=== PATIENT | male | born 1930 | race African-American/Black ===

== ENCOUNTER 2018-07-11 16:59 | Inpatient (IN) | payer MEDICARE, OTHER ==
[~2018-07-11] VITALS: Ht 175.3 cm; Wt 81.8 kg
[2018-07-11] MEDS ORDERED: SODIUM CHLORIDE 0.9% 1,000 ML IV ONE (17:46)
[2018-07-11 19:01] LABS: BASOPHILS % 0.7 % (0.0-2.0); EOSINOPHILS % 1.2 % (0.0-5.0); HEMATOCRIT. 39.8 % (42.0-52.0); LYMPHOCYTES % 28.1 % (20.0-50.0); MEAN CORPUSCULAR HEMOGLOBIN 30.4 pg (28.0-32.0); MEAN CORPUSCULAR VOLUME 92.9 fL (80.0-94.0); MEAN PLATELET VOLUME 9.2 fl (7.4-10.4); MONOCYTES % 5.3 % (2.0-8.0); NEUTROPHILS % 64.7 % (40.0-76.0); PLATELET 201 x1000/uL (130-400); RED BLOOD CELL COUNT 4.28 mill/uL (4.7-6.1); RED CELL DISTRIBUTION WIDTH 17.7 % (11.6-14.6)
[2018-07-11 19:02] LABS: CHLORIDE 108 mEq/L (98-107)
[2018-07-11 19:06] LABS: ETHANOL BLOOD < 10 mg/dL
[2018-07-11 19:09] LABS: PARTIAL THROMBOPLASTIN TIME 25.1 sec (23.4-31.0); PROTHROMBIN TIME 10.1 sec (9.1-11.1)
[2018-07-11] MEDS ORDERED: NA PHOS,M-B/NA PHOS,DI-BA ENEMA 118ML PR PRN (21:30)
[2018-07-11] MEDS ORDERED: ONDANSETRON HCL 4MG/2ML INJ IV PRN (21:30)
[2018-07-11] MEDS ORDERED: MAGNESIUM/ALUMINUM HYDROXIDE/SIMETHICONE 30ML UDC PO PRN (21:30)
[2018-07-11] MEDS ORDERED: DOCUSATE SODIUM 100MG CAPSULE PO PRN (21:30)
[2018-07-11] MEDS ORDERED: IPRATROPIUM/ALBUTEROL 0.5-3(2.5)MG/3ML NEB INH PRN (21:30)
[2018-07-11] MEDS ORDERED: GUAIFENESIN 200MG/10ML SUGAR FREE UDC PO PRN (21:30)
[2018-07-11] MEDS ORDERED: ACETAMINOPHEN 650MG SUPP PR PRN (21:30)
[2018-07-11] MEDS ORDERED: ACETAMINOPHEN 325MG TABLET PO PRN (21:30)
[2018-07-11] MEDS ORDERED: ACETAMINOPHEN 650MG/20.3ML UDC GT PRN (21:30)
[2018-07-11] MEDS ORDERED: ENOXAPARIN 40MG/0.4ML SYR SUBCUT SCH (21:30)
[2018-07-11] MEDS ORDERED: SODIUM CHLORIDE 0.9% INJ 3ML FLUSH IVF SCH (22:00)
[2018-07-11] MEDS: DEXT 5%/0.45% NACL 1000ML 1,000 ML IV SCH (22:23)
[2018-07-12 00:28] LABS: CREATINE KINASE 65 IU/L (39-308)
[2018-07-12 04:20] VITALS: BP 135/63
[2018-07-12] MEDS ORDERED: ENOXAPARIN 40MG/0.4ML SYR SUBCUT SCH (04:45)
[2018-07-12] MEDS ORDERED: NA PHOS,M-B/NA PHOS,DI-BA ENEMA 118ML PR PRN (04:45)
[2018-07-12] MEDS: SODIUM CHLORIDE 0.9% INJ 3ML FLUSH IVF SCH ×3 (06:00→21:28)
[2018-07-12 06:10] LABS: CLARITY URINE CLEAR (CLEAR); COLOR URINE YELLOW (YELLOW); KETONES URINE NEGATIVE (NEGATIVE); LEUKOCYTE ESTERASE URINE TRACE (NEGATIVE); NITRITE URINE NEGATIVE (NEGATIVE); OCCULT BLOOD URINE NEGATIVE (NEGATIVE); PROTEIN URINE NEGATIVE (NEGATIVE); SPECIFIC GRAVITY URINE 1.013 (1.005-1.030); UROBILINOGEN URINE 0.2 E.U./dL (0.2-1.0)
[2018-07-12 06:48] LABS: *AMPHETAMINES SCREEN URINE NEGATIVE (NEGATIVE); *BARBITURATES SCREEN URINE NEGATIVE (NEGATIVE); *BENZODIAZEPINES SCREEN URINE NEGATIVE (NEGATIVE); *COCAINE SCREEN URINE NEGATIVE (NEGATIVE); METHADONE URINE SCREEN NEGATIVE (NEGATIVE); OPIATES URINE SCREEN NEGATIVE (NEGATIVE)
[2018-07-12 06:49] LABS: CANNABINOID URINE SCREEN NEGATIVE (NEGATIVE); PHENCYCLIDINE URINE SCREEN NEGATIVE (NEGATIVE)
[2018-07-12 07:07] VITALS: BP 135/63
[2018-07-12 08:00] VITALS: BP 141/64
[2018-07-12 08:24] LABS: BASOPHILS % 0.8 % (0.0-2.0); EOSINOPHILS % 1.5 % (0.0-5.0); HEMATOCRIT. 34.8 % (42.0-52.0); HEMOGLOBIN. 11.4 g/dL (14.0-18.0); LYMPHOCYTES % 29.1 % (20.0-50.0); MEAN CORPUSCULAR VOLUME 91.7 fL (80.0-94.0); MONOCYTES % 7.7 % (2.0-8.0); NEUTROPHILS % 60.9 % (40.0-76.0); PLATELET 183 x1000/uL (130-400); RED BLOOD CELL COUNT 3.79 mill/uL (4.7-6.1)
[2018-07-12 08:46] LABS: BG BASE EXCESS -3.7 mmol/L (-2.0-2.0); BG CARBOXYHEMOGLOBIN 0.5 % (0.5-1.5); BG DEOXYHEMOGLOBIN 1.9 % (0.0-5.0); BG FRACTION INSPIRED OXYGEN 21; BG HCO3 ACT 20.7 mmol/L (22.0-26.0); BG METHEMOGLOBIN 0.3 % (0.0-1.5); BG OXYGEN SATURATION 98.1 % (92.0-98.5); BG OXYHEMOGLOBIN 97.3 % (94.0-97.0); BG PCO2 35.7 mmHg (35.0-45.0); BG PH 7.382 (7.350-7.450); BG PO2 109.7 mmHg (75.0-100.0); BG SAMPLE SITE RIGHT RADIAL; BG TOTAL HEMOGLOBIN 12.2 g/dL (12.0-18.0); BG VENT MODE ROOM AIR
[2018-07-12 09:12] LABS: CHLORIDE 115 mEq/L (98-107)
[2018-07-12 09:20] LABS: HDL CHOLESTEROL 52 mg/dL (40-59); LDL CHOLESTEROL 79 mg/dL (5-100)
[2018-07-12 09:21] LABS: CREATINE KINASE 76 IU/L (39-308)
[2018-07-12] MEDS: ENOXAPARIN 30MG/0.3ML SYR SUBCUT SCH ×2 (09:32→21:18)
[2018-07-12 12:00] VITALS: BP 139/56
[2018-07-12] MEDS ORDERED: DEXTROSE 50% WATER 50ML SYRINGE IV PRN (12:00)
[2018-07-12] MEDS: INSULIN LISPRO 100 UNITS/ML SUBCUT SCH ×3 (12:37→21:00)
[2018-07-12] MEDS ORDERED: MEGE40TA27 MT (12:49)
[2018-07-12] MEDS ORDERED: LOVA40TA73 PO (12:49)
[2018-07-12] MEDS ORDERED: BENA40TA9 PO (12:49)
[2018-07-12] MEDS ORDERED: ATEN100T MT (12:49)
[2018-07-12] MEDS ORDERED: FINA5TAB11 MT (12:49)
[2018-07-12] MEDS ORDERED: ALLO300T2 PO (12:49)
[2018-07-12] MEDS ORDERED: TERA10CA4 PO (12:49)
[2018-07-12] MEDS ORDERED: ASPI-1158 PO (12:49)
[2018-07-12] MEDS ORDERED: NIFE90TA2 PO (12:49)
[2018-07-12] MEDS ORDERED: CLOP75TA33 PO (12:49)
[2018-07-12] MEDS ORDERED: METF-414 PO (12:49)
[2018-07-12] MEDS ORDERED: HYDR12.529 MT (12:49)
[2018-07-12] MEDS ORDERED: SODIUM POLYSTYRENE SULFONATE 15 G/60 ML BOT PO NR (14:30)
[2018-07-12 16:00] VITALS: BP 150/66
[2018-07-12] MEDS: BLOOD SUGAR DIAGNOSTIC STRIP TEST SCH ×2 (17:01→21:00)
[2018-07-12 20:00] VITALS: BP 153/76
[2018-07-13] VITALS: BP 163/50
[2018-07-13] MEDS: DIPHENHYDRAMINE 50MG/ML VIAL IV PRN (02:21)
[2018-07-13] MEDS: SODIUM CHLORIDE 0.9% INJ 3ML FLUSH IVF SCH ×3 (06:07→21:36)
[2018-07-13 06:12] LABS: HEMATOCRIT 34.9 % (42.0-52.0); HEMOGLOBIN 11.5 g/dL (14.0-18.0); MEAN CORPUSCULAR HEMOGLOBIN 30.3 pg (28.0-32.0); MEAN CORPUSCULAR VOLUME 92.3 fL (80.0-94.0); PLATELET 176 x1000/uL (130-400); RED BLOOD CELL COUNT 3.78 mill/uL (4.7-6.1); RED CELL DISTRIBUTION WIDTH 17.5 % (11.6-14.6)
[2018-07-13] MEDS: INSULIN LISPRO 100 UNITS/ML SUBCUT SCH ×4 (06:33→21:34)
[2018-07-13] MEDS: BLOOD SUGAR DIAGNOSTIC STRIP TEST SCH ×4 (06:33→20:57)
[2018-07-13 08:00] VITALS: BP 159/84
[2018-07-13] MEDS: CLONIDINE 0.1MG TABLET PO PRN ×2 (08:39→16:23)
[2018-07-13] MEDS: ENOXAPARIN 30MG/0.3ML SYR SUBCUT SCH ×2 (08:40→20:37)
[2018-07-13] MEDS: DEXT 5%/0.45% NACL 1000ML 1,000 ML IV SCH (08:40)
[2018-07-13 12:00] VITALS: BP 138/63
[2018-07-13 16:00] VITALS: BP 176/51
[2018-07-13] MEDS ORDERED: MEDICATION NOT ON FORMULARY EA (Lovastatin 1 TAB) MT SCH (17:45)
[2018-07-13 17:59] LABS: T4 FREE 1.3 ng/dL (0.76-1.46)
[2018-07-13 18:22] LABS: FOLIC ACID (FOLATE) SERUM 14.9 ng/mL (>5.38)
[2018-07-13] MEDS: BENAZEPRIL 10MG TABLET PO SCH (18:26)
[2018-07-13] MEDS: AMLODIPINE 5MG TABLET PO SCH (18:26)
[2018-07-13 20:00] VITALS: BP 197/77
[2018-07-13] MEDS ORDERED: CEFTRIAXONE 1 G PREMIX 50 ML IV SCH (20:00)
[2018-07-13] MEDS: ERYTHROMYCIN BASE 0.5% OPHTH OINT 3.5GM BOTHEYE SCH (20:37)
[2018-07-13] MEDS: ATORVASTATIN CALCIUM 10MG TABLET PO SCH (20:39)
[2018-07-13] MEDS: QUETIAPINE FUMARATE 25MG TABLET PO SCH (20:39)
[2018-07-13 20:45] VITALS: BP 171/81
[2018-07-13] MEDS: TERAZOSIN HCL 5MG CAPSULE PO SCH (20:57)
[2018-07-14] VITALS: BP 122/58
[2018-07-14] MEDS: DEXT 5%/0.45% NACL 1000ML 1,000 ML IV SCH ×2 (00:04→15:17)
[2018-07-14 04:00] VITALS: BP 145/71
[2018-07-14] MEDS: ERYTHROMYCIN BASE 0.5% OPHTH OINT 3.5GM BOTHEYE SCH ×3 (04:00→20:28)
[2018-07-14] MEDS: SODIUM CHLORIDE 0.9% INJ 3ML FLUSH IVF SCH ×3 (06:04→22:28)
[2018-07-14 06:17] LABS: HEMATOCRIT 32.9 % (42.0-52.0); HEMOGLOBIN 10.9 g/dL (14.0-18.0); MEAN CORPUSCULAR HEMOGLOBIN 30.3 pg (28.0-32.0); MEAN CORPUSCULAR VOLUME 91.3 fL (80.0-94.0); PLATELET 168 x1000/uL (130-400); RED CELL DISTRIBUTION WIDTH 17.5 % (11.6-14.6)
[2018-07-14] MEDS: BLOOD SUGAR DIAGNOSTIC STRIP TEST SCH ×4 (06:45→20:24)
[2018-07-14] MEDS: INSULIN LISPRO 100 UNITS/ML SUBCUT SCH ×4 (06:48→20:40)
[2018-07-14 08:00] VITALS: BP 153/72
[2018-07-14] MEDS ORDERED: LORAZEPAM 2MG/ML CPJ IV PRN (08:00)
[2018-07-14] MEDS: FINASTERIDE 5MG TABLET PO SCH (08:54)
[2018-07-14] MEDS: QUETIAPINE FUMARATE 25MG TABLET PO SCH ×2 (08:54→20:29)
[2018-07-14] MEDS: ALLOPURINOL 100 MG TABLET PO SCH (08:54)
[2018-07-14] MEDS: BENAZEPRIL 10MG TABLET PO SCH (08:55)
[2018-07-14] MEDS: ENOXAPARIN 30MG/0.3ML SYR SUBCUT SCH ×3 (08:55→20:29)
[2018-07-14] MEDS: METFORMIN HCL 500MG TABLET PO SCH (08:55)
[2018-07-14] MEDS: AMLODIPINE 5MG TABLET PO SCH (08:55)
[2018-07-14] MEDS ORDERED: MEDICATION NOT ON FORMULARY EA (Terazosin Hcl 1 CAP) MT SCH (09:00)
[2018-07-14] MEDS ORDERED: MEDICATION NOT ON FORMULARY EA (Metformin Hcl 1 TAB) MT SCH (09:00)
[2018-07-14] MEDS ORDERED: MEDICATION NOT ON FORMULARY EA (Allopurinol 1 TAB) MT SCH (09:00)
[2018-07-14] MEDS ORDERED: MEDICATION NOT ON FORMULARY EA (Finasteride 1 TAB) MT SCH (09:00)
[2018-07-14 12:00] VITALS: BP 108/60
[2018-07-14 16:00] VITALS: BP 150/70
[2018-07-14] MEDS: LEVOFLOXACIN 500MG PREMIX 100 ML IV SCH (19:36)
[2018-07-14 20:00] VITALS: BP 141/75
[2018-07-14] MEDS ORDERED: CEFTRIAXONE 1,000 MG in DEXTROSE 5% WATER 50 ML IV SCH (20:00)
[2018-07-14] MEDS: ATORVASTATIN CALCIUM 10MG TABLET PO SCH (20:29)
[2018-07-14] MEDS: TERAZOSIN HCL 5MG CAPSULE PO SCH (20:39)
[2018-07-15] VITALS: BP 143/60
[2018-07-15] MEDS: DIPHENHYDRAMINE 50MG/ML VIAL IV PRN (00:28)
[2018-07-15 04:00] VITALS: BP 135/58
[2018-07-15] MEDS: ERYTHROMYCIN BASE 0.5% OPHTH OINT 3.5GM BOTHEYE SCH ×3 (05:14→21:05)
[2018-07-15] MEDS: BLOOD SUGAR DIAGNOSTIC STRIP TEST SCH ×4 (05:50→21:06)
[2018-07-15] MEDS: SODIUM CHLORIDE 0.9% INJ 3ML FLUSH IVF SCH ×3 (06:09→21:06)
[2018-07-15] MEDS: INSULIN LISPRO 100 UNITS/ML SUBCUT SCH ×4 (06:15→21:00)
[2018-07-15 08:00] VITALS: BP 115/71
[2018-07-15] MEDS: QUETIAPINE FUMARATE 25MG TABLET PO SCH ×2 (09:00→21:06)
[2018-07-15] MEDS: METFORMIN HCL 500MG TABLET PO SCH (09:27)
[2018-07-15] MEDS: FINASTERIDE 5MG TABLET PO SCH (09:37)
[2018-07-15] MEDS: BENAZEPRIL 10MG TABLET PO SCH (09:37)
[2018-07-15] MEDS: ALLOPURINOL 100 MG TABLET PO SCH (09:37)
[2018-07-15] MEDS: ENOXAPARIN 30MG/0.3ML SYR SUBCUT SCH ×2 (09:37→21:05)
[2018-07-15] MEDS: AMLODIPINE 5MG TABLET PO SCH (09:38)
[2018-07-15 12:00] VITALS: BP 123/62
[2018-07-15 16:00] VITALS: BP 154/73
[2018-07-15] MEDS: LEVOFLOXACIN 500MG PREMIX 100 ML IV SCH (19:01)
[2018-07-15 20:00] VITALS: BP 118/69
[2018-07-15] MEDS: TERAZOSIN HCL 5MG CAPSULE PO SCH (21:06)
[2018-07-15] MEDS: ATORVASTATIN CALCIUM 10MG TABLET PO SCH (21:06)
[2018-07-16 00:02] VITALS: BP 112/51
[2018-07-16] MEDS: ERYTHROMYCIN BASE 0.5% OPHTH OINT 3.5GM BOTHEYE SCH ×3 (04:24→21:10)
[2018-07-16] MEDS: SODIUM CHLORIDE 0.9% INJ 3ML FLUSH IVF SCH ×3 (06:40→21:10)
[2018-07-16] MEDS: BLOOD SUGAR DIAGNOSTIC STRIP TEST SCH ×4 (06:40→21:02)
[2018-07-16] MEDS: INSULIN LISPRO 100 UNITS/ML SUBCUT SCH ×4 (06:41→21:11)
[2018-07-16 08:00] VITALS: BP 145/66
[2018-07-16] MEDS: QUETIAPINE FUMARATE 25MG TABLET PO SCH ×2 (08:38→21:14)
[2018-07-16] MEDS: BENAZEPRIL 10MG TABLET PO SCH (08:40)
[2018-07-16] MEDS: FINASTERIDE 5MG TABLET PO SCH (08:40)
[2018-07-16] MEDS: ENOXAPARIN 30MG/0.3ML SYR SUBCUT SCH (08:40)
[2018-07-16] MEDS: METFORMIN HCL 500MG TABLET PO SCH (08:40)
[2018-07-16] MEDS: ALLOPURINOL 100 MG TABLET PO SCH (08:40)
[2018-07-16] MEDS: AMLODIPINE 5MG TABLET PO SCH (08:40)
[2018-07-16 12:00] VITALS: BP 127/60
[2018-07-16 16:00] VITALS: BP 133/61
[2018-07-16 20:00] VITALS: BP 121/46
[2018-07-16] MEDS: TERAZOSIN HCL 5MG CAPSULE PO SCH (21:13)
[2018-07-16] MEDS: ATORVASTATIN CALCIUM 10MG TABLET PO SCH (21:13)
[2018-07-17] VITALS: BP 120/50
[2018-07-17 04:00] VITALS: BP 109/52
[2018-07-17] MEDS: ERYTHROMYCIN BASE 0.5% OPHTH OINT 3.5GM BOTHEYE SCH ×3 (04:34→20:21)
[2018-07-17] MEDS: BLOOD SUGAR DIAGNOSTIC STRIP TEST SCH ×4 (05:49→20:21)
[2018-07-17] MEDS: SODIUM CHLORIDE 0.9% INJ 3ML FLUSH IVF SCH ×2 (05:49→16:22)
[2018-07-17] MEDS: INSULIN LISPRO 100 UNITS/ML SUBCUT SCH ×4 (05:49→20:20)
[2018-07-17] MEDS ORDERED: ENOXAPARIN 40MG/0.4ML SYR SUBCUT SCH (09:00)
[2018-07-17] MEDS: ALLOPURINOL 100 MG TABLET PO SCH (09:45)
[2018-07-17] MEDS: METFORMIN HCL 500MG TABLET PO SCH (09:45)
[2018-07-17] MEDS: FINASTERIDE 5MG TABLET PO SCH (09:45)
[2018-07-17] MEDS: AMLODIPINE 5MG TABLET PO SCH (09:45)
[2018-07-17] MEDS: QUETIAPINE FUMARATE 25MG TABLET PO SCH ×2 (09:47→20:20)
[2018-07-17] MEDS: BENAZEPRIL 10MG TABLET PO SCH (10:24)
[2018-07-17] MEDS ORDERED: LEVOFLOXACIN 250MG TABLET PO SCH ×2 (11:00→15:00)
[2018-07-17 12:29] VITALS: BP 147/66
[2018-07-17 16:00] VITALS: BP 109/56
[2018-07-17 20:07] VITALS: BP 118/61
[2018-07-17] MEDS: TERAZOSIN HCL 5MG CAPSULE PO SCH (20:19)
[2018-07-17] MEDS: ATORVASTATIN CALCIUM 10MG TABLET PO SCH (20:20)
== END 2018-07-17 21:08 | disposition home health service (06) | DRG 871 ==
LOC: ER 16:59 → 5WST 21:18 → EDBEDREQ 21:28 → EDBEDREQTM 21:28 → ENRESERV 07-12 03:30
PROVIDERS: ADMIT Internal Medicine; ATTEND Internal Medicine
DX: A41.9 Sepsis, unspecified organism (principal); G92 Toxic encephalopathy; N39.0 Urinary tract infection, site not specified; J44.1 Chronic obstructive pulmonary disease with (acute) exacerbation; E87.2 Acidosis; K57.92 Diverticulitis of intestine, part unspecified, without perforation or abscess without bleeding; D64.9 Anemia, unspecified; E11.65 Type 2 diabetes mellitus with hyperglycemia; E87.5 Hyperkalemia; E86.0 Dehydration; E78.00 Pure hypercholesterolemia, unspecified; F03.90 Unspecified dementia, unspecified severity, without behavioral disturbance, psychotic disturbance, mood disturbance, and anxiety; F32.9 Major depressive disorder, single episode, unspecified; I11.0 Hypertensive heart disease with heart failure; I50.9 Heart failure, unspecified; J44.9 Chronic obstructive pulmonary disease, unspecified; M10.9 Gout, unspecified; N40.0 Benign prostatic hyperplasia without lower urinary tract symptoms
CPT/HCPCS: 36415; 36600; 70551; 71045; 74176; 80048; 80061; 80305; 80307; 80329; 82140; 82375; 82550; 82607; 82746; 82805; 82962; 83036; 83605; 83880; 84153; 84439; 84443; 84481; 84484; 84550; 85027; 92610; 93005; 93306; 96374; 97116; 97162; 99285; J0696; J1200; J1650; J1815; J1956; J7030; J7042; J7060; J7620; G0103

== ENCOUNTER 2018-08-12 12:44 | Inpatient (IN) | payer OTHER ==
[~2018-08-12] VITALS: Ht 182.9 cm; Wt 78.9 kg
[~2018-08-12 12:44] MED LIST: ALLO300T2 PO; ASPI-1158 PO; ATEN100T MT; BENA40TA9 PO; CLOP75TA33 PO; FINA5TAB11 MT; HYDR12.529 MT; LOVA40TA73 PO; MEGE40TA27 MT; METF-414 PO; NIFE90TA2 PO; TERA10CA4 PO
[2018-08-12 14:12] LABS: BASOPHILS % 0.5 % (0.0-2.0); EOSINOPHILS % 1.2 % (0.0-5.0); HEMATOCRIT. 35.5 % (42.0-52.0); HEMOGLOBIN. 11.7 g/dL (14.0-18.0); LYMPHOCYTES % 17.6 % (20.0-50.0); MEAN CORPUSCULAR HEMOGLOBIN 30.6 pg (28.0-32.0); MEAN PLATELET VOLUME 8.8 fl (7.4-10.4); MONOCYTES % 5.7 % (2.0-8.0); PLATELET 210 x1000/uL (130-400); RED BLOOD CELL COUNT 3.81 mill/uL (4.7-6.1); RED CELL DISTRIBUTION WIDTH 16.2 % (11.6-14.6)
[2018-08-12 14:18] LABS: CHLORIDE 108 mEq/L (98-107); PROTHROMBIN TIME 10.4 sec (9.1-11.1)
[2018-08-12] MEDS ORDERED: ASPIRIN 325MG EC TABLET PO ONE (14:45)
[2018-08-12] MEDS ORDERED: CLONIDINE 0.1MG TABLET PO PRN (17:00)
[2018-08-12] MEDS ORDERED: ONDANSETRON HCL 4MG/2ML INJ IV PRN (17:00)
[2018-08-12] MEDS ORDERED: NA PHOS,M-B/NA PHOS,DI-BA ENEMA 118ML PR PRN (17:00)
[2018-08-12] MEDS ORDERED: DEXTROSE 50% WATER 50ML SYRINGE IV PRN (17:00)
[2018-08-12] MEDS ORDERED: ACETAMINOPHEN 325MG TABLET PO PRN (17:00)
[2018-08-12] MEDS ORDERED: HYDROCODONE/ACETAMINOPHEN 5/325MG TABLET PO PRN (17:00)
[2018-08-12] MEDS ORDERED: GUAIFENESIN 200MG/10ML SUGAR FREE UDC PO PRN (17:00)
[2018-08-12] MEDS ORDERED: MAGNESIUM/ALUMINUM HYDROXIDE/SIMETHICONE 30ML UDC PO PRN (17:00)
[2018-08-12] MEDS ORDERED: IPRATROPIUM/ALBUTEROL 0.5-3(2.5)MG/3ML NEB INH PRN (17:00)
[2018-08-12] MEDS ORDERED: ACETAMINOPHEN 650MG SUPP PR PRN (17:00)
[2018-08-12] MEDS ORDERED: LORAZEPAM 0.5MG TABLET PO PRN (17:00)
[2018-08-12] MEDS ORDERED: DOCUSATE SODIUM 100MG CAPSULE PO PRN (17:00)
[2018-08-12 19:17] LABS: CLARITY URINE CLEAR (CLEAR); COLOR URINE YELLOW (YELLOW); KETONES URINE NEGATIVE (NEGATIVE); LEUKOCYTE ESTERASE URINE NEGATIVE (NEGATIVE); NITRITE URINE NEGATIVE (NEGATIVE); OCCULT BLOOD URINE NEGATIVE (NEGATIVE); PROTEIN URINE NEGATIVE (NEGATIVE); SPECIFIC GRAVITY URINE 1.018 (1.005-1.030)
[2018-08-12 19:26] LABS: *AMPHETAMINES SCREEN URINE NEGATIVE (NEGATIVE); *BARBITURATES SCREEN URINE NEGATIVE (NEGATIVE); *BENZODIAZEPINES SCREEN URINE NEGATIVE (NEGATIVE); *COCAINE SCREEN URINE NEGATIVE (NEGATIVE); CANNABINOID URINE SCREEN NEGATIVE (NEGATIVE); METHADONE URINE SCREEN NEGATIVE (NEGATIVE); OPIATES URINE SCREEN NEGATIVE (NEGATIVE); PHENCYCLIDINE URINE SCREEN NEGATIVE (NEGATIVE)
[2018-08-12] MEDS: SODIUM CHLORIDE 0.45% 1,000 ML IV SCH ×2 (21:00→22:30)
[2018-08-12] MEDS ORDERED: VENL-180 PO (23:41)
[2018-08-12] MEDS ORDERED: MEMA10TA2 PO (23:41)
[2018-08-12] MEDS ORDERED: MEGE625O3 PO (23:41)
[2018-08-12] MEDS ORDERED: NITR0.4T49 SL (23:41)
[2018-08-12 23:46] VITALS: BP 165/81
[2018-08-12 23:47] LABS: CREATINE KINASE 50 IU/L (39-308)
[2018-08-12 23:48] LABS: CREATINE KINASE MB FRACTION 1.6 ng/mL (0.5-3.6)
[2018-08-12 23:50] VITALS: BP 165/81
[2018-08-13 04:00] VITALS: BP 124/79
[2018-08-13] MEDS ORDERED: QUET50TA PO (04:41)
[2018-08-13] MEDS: DIPHENHYDRAMINE 50MG/ML VIAL IV PRN (04:51)
[2018-08-13 06:18] LABS: BASOPHILS % 0.8 % (0.0-2.0); EOSINOPHILS % 1.9 % (0.0-5.0); HEMATOCRIT. 33.4 % (42.0-52.0); HEMOGLOBIN. 11.1 g/dL (14.0-18.0); LYMPHOCYTES % 22.5 % (20.0-50.0); MEAN CORPUSCULAR HEMOGLOBIN 30.7 pg (28.0-32.0); MEAN CORPUSCULAR VOLUME 92.1 fL (80.0-94.0); MEAN PLATELET VOLUME 9.1 fl (7.4-10.4); MONOCYTES % 7.6 % (2.0-8.0); NEUTROPHILS % 67.2 % (40.0-76.0); PLATELET 197 x1000/uL (130-400); RED BLOOD CELL COUNT 3.62 mill/uL (4.7-6.1)
[2018-08-13 06:50] LABS: CHLORIDE 111 mEq/L (98-107)
[2018-08-13] MEDS: BLOOD SUGAR DIAGNOSTIC STRIP TEST SCH ×4 (07:00→20:36)
[2018-08-13 07:01] LABS: T4 FREE 1.18 ng/dL (0.76-1.46)
[2018-08-13 07:02] LABS: CREATINE KINASE MB FRACTION 1.3 ng/mL (0.5-3.6); LDL CHOLESTEROL 104 mg/dL (5-100)
[2018-08-13 07:04] LABS: CREATINE KINASE 53 IU/L (39-308); HDL CHOLESTEROL 47 mg/dL (40-59)
[2018-08-13 08:00] VITALS: BP 127/68
[2018-08-13] MEDS: INSULIN LISPRO 100 UNITS/ML SUBCUT SCH ×4 (08:10→20:41)
[2018-08-13 12:00] VITALS: BP 142/66
[2018-08-13 16:00] VITALS: BP_SYST 129; BP_SYST 141; BP_DIAS 57; BP_DIAS 63
[2018-08-13 17:00] LABS: VITAMIN B12 SERUM 665 pg/mL (211-911)
[2018-08-13] MEDS ORDERED: RISPERIDONE 0.25MG TABLET PO PRN (17:00)
[2018-08-13] MEDS ORDERED: DEXTROSE 50% WATER 50ML SYRINGE IV PRN (17:00)
[2018-08-13 20:00] VITALS: BP 146/64
[2018-08-13] MEDS: SODIUM CHLORIDE 0.45% 1,000 ML IV SCH (20:36)
[2018-08-14] VITALS (7 sets, daily range): BP systolic 122–175; BP diastolic 59–98
[2018-08-14] MEDS: DIPHENHYDRAMINE 50MG/ML VIAL IV PRN (02:53)
[2018-08-14 06:59] LABS: HEMATOCRIT 34.3 % (42.0-52.0); HEMOGLOBIN 11.2 g/dL (14.0-18.0); MEAN CORPUSCULAR HEMOGLOBIN 30.3 pg (28.0-32.0); PLATELET 190 x1000/uL (130-400); RED BLOOD CELL COUNT 3.69 mill/uL (4.7-6.1); RED CELL DISTRIBUTION WIDTH 15.9 % (11.6-14.6)
[2018-08-14 07:53] LABS: CHLORIDE 111 mEq/L (98-107)
[2018-08-14] MEDS: BLOOD SUGAR DIAGNOSTIC STRIP TEST SCH ×4 (08:02→20:27)
[2018-08-14] MEDS: INSULIN LISPRO 100 UNITS/ML SUBCUT SCH ×4 (08:10→20:51)
[2018-08-15] VITALS (8 sets, daily range): BP systolic 106–174; BP diastolic 51–79
[2018-08-15] MEDS: SODIUM CHLORIDE 0.45% 1,000 ML IV SCH (00:18)
[2018-08-15] MEDS: BLOOD SUGAR DIAGNOSTIC STRIP TEST SCH ×4 (05:54→22:25)
[2018-08-15] MEDS: INSULIN LISPRO 100 UNITS/ML SUBCUT SCH ×4 (08:10→22:30)
[2018-08-15] MEDS ORDERED: QUETIAPINE FUMARATE 25MG TABLET PO PRN (18:00)
[2018-08-15] MEDS: MEMANTINE HCL 10MG TABLET PO SCH (18:02)
[2018-08-15] MEDS: NIFEDIPINE XL 90MG TAB PO SCH (18:02)
[2018-08-15] MEDS: ATORVASTATIN CALCIUM 40MG TABLET PO SCH (22:25)
[2018-08-16] VITALS: BP 140/62
[2018-08-16 04:00] VITALS: BP 120/61
[2018-08-16] MEDS: BLOOD SUGAR DIAGNOSTIC STRIP TEST SCH ×4 (06:52→21:09)
[2018-08-16 08:00] VITALS: BP 128/68
[2018-08-16] MEDS: TERAZOSIN HCL 5MG CAPSULE PO SCH (09:05)
[2018-08-16] MEDS: METFORMIN HCL 500MG TABLET PO SCH (09:05)
[2018-08-16] MEDS: ASPIRIN 81MG TABLET PO SCH (09:05)
[2018-08-16] MEDS: CLOPIDOGREL 75MG TABLET PO SCH (09:06)
[2018-08-16] MEDS: MEMANTINE HCL 10MG TABLET PO SCH (09:06)
[2018-08-16] MEDS: VENLAFAXINE HCL 75MG TABLET PO SCH (09:06)
[2018-08-16] MEDS: NIFEDIPINE XL 90MG TAB PO SCH (09:07)
[2018-08-16] MEDS: MEGESTROL ACETATE 400 MG/10 ML UDC PO SCH (09:07)
[2018-08-16] MEDS: INSULIN LISPRO 100 UNITS/ML SUBCUT SCH ×4 (09:09→21:09)
[2018-08-16] MEDS: ALLOPURINOL 300 MG TABLET PO SCH (09:14)
[2018-08-16] MEDS: BENAZEPRIL 10MG TABLET PO SCH (09:14)
[2018-08-16 12:00] VITALS: BP 114/58
[2018-08-16 16:00] VITALS: BP_SYST 114; BP_SYST 115; BP_DIAS 58; BP_DIAS 61
[2018-08-16 20:00] VITALS: BP_SYST 105; BP_SYST 110; BP_DIAS 55; BP_DIAS 60
[2018-08-16] MEDS: ATORVASTATIN CALCIUM 40MG TABLET PO SCH (21:08)
[2018-08-17] VITALS: BP 114/56
[2018-08-17 04:00] VITALS: BP 127/61
[2018-08-17 07:38] LABS: HEMATOCRIT 33.8 % (42.0-52.0); HEMOGLOBIN 11.2 g/dL (14.0-18.0); MEAN CORPUSCULAR HEMOGLOBIN 30.5 pg (28.0-32.0); MEAN CORPUSCULAR VOLUME 92.3 fL (80.0-94.0); PLATELET 182 x1000/uL (130-400); RED BLOOD CELL COUNT 3.66 mill/uL (4.7-6.1); RED CELL DISTRIBUTION WIDTH 15.8 % (11.6-14.6)
[2018-08-17] MEDS: BLOOD SUGAR DIAGNOSTIC STRIP TEST SCH ×2 (07:40→12:40)
[2018-08-17 08:00] VITALS: BP 126/67
[2018-08-17] MEDS: INSULIN LISPRO 100 UNITS/ML SUBCUT SCH ×2 (08:10→13:10)
[2018-08-17] MEDS: VENLAFAXINE HCL 75MG TABLET PO SCH (08:52)
[2018-08-17] MEDS: MEMANTINE HCL 10MG TABLET PO SCH (08:53)
[2018-08-17] MEDS: METFORMIN HCL 500MG TABLET PO SCH (08:53)
[2018-08-17] MEDS: ASPIRIN 81MG TABLET PO SCH (08:53)
[2018-08-17] MEDS: TERAZOSIN HCL 5MG CAPSULE PO SCH (08:54)
[2018-08-17] MEDS: NIFEDIPINE XL 90MG TAB PO SCH (08:54)
[2018-08-17] MEDS: CLOPIDOGREL 75MG TABLET PO SCH (08:54)
[2018-08-17] MEDS: MEGESTROL ACETATE 400 MG/10 ML UDC PO SCH (09:00)
[2018-08-17] MEDS: BENAZEPRIL 10MG TABLET PO SCH (09:10)
[2018-08-17] MEDS: ALLOPURINOL 300 MG TABLET PO SCH (09:10)
[2018-08-17 12:00] VITALS: BP 119/62
[2018-08-17 16:00] VITALS: BP 125/64
[2018-08-17 16:13] VITALS: BP 119/62
== END 2018-08-17 19:15 | disposition hospice, home (50) | DRG 74 ==
LOC: ER 12:49 → 7WST 15:14 → ENRESERV 22:20
PROVIDERS: ADMIT Internal Medicine; ATTEND Internal Medicine
PROC: 4A00X4Z Measurement of Central Nervous Electrical Activity, External Approach (ICD-10-PCS; principal; 2018-08-14)
DX: G90.8 Other disorders of autonomic nervous system (principal); I42.9 Cardiomyopathy, unspecified; N17.9 Acute kidney failure, unspecified; I95.1 Orthostatic hypotension; E86.0 Dehydration; C61 Malignant neoplasm of prostate; E11.65 Type 2 diabetes mellitus with hyperglycemia; F02.80 Dementia in other diseases classified elsewhere, unspecified severity, without behavioral disturbance, psychotic disturbance, mood disturbance, and anxiety; G30.9 Alzheimer's disease, unspecified; R53.1 Weakness; I50.9 Heart failure, unspecified; I11.0 Hypertensive heart disease with heart failure; D64.9 Anemia, unspecified; E78.5 Hyperlipidemia, unspecified; Z66 Do not resuscitate; R62.7 Adult failure to thrive; Z74.01 Bed confinement status; J44.9 Chronic obstructive pulmonary disease, unspecified; I25.10 Atherosclerotic heart disease of native coronary artery without angina pectoris; W18.30XA Fall on same level, unspecified, initial encounter; Y93.89 Activity, other specified; Y92.89 Other specified places as the place of occurrence of the external cause; Y99.8 Other external cause status; Z68.23 Body mass index [BMI] 23.0-23.9, adult; Z95.5 Presence of coronary angioplasty implant and graft; Z82.49 Family history of ischemic heart disease and other diseases of the circulatory system; I25.2 Old myocardial infarction
CPT/HCPCS: 36415; 71045; 80048; 80061; 80305; 82550; 82553; 82607; 82962; 84439; 84443; 84484; 85027; 93005; 93306; 93880; 93970; 96374; 97162; 99285; J1200; J1815